=== PATIENT | female | born 1950 | race Caucasian/White ===

== ENCOUNTER 2017-05-27 12:56 | Outpatient (CLI) | payer MEDICARE | END 2017-05-27 12:57 | disposition home or self-care (01) | LOC: LAB.F 12:56 | PROVIDERS: ATTEND Internal Medicine | DX: E03.9 Hypothyroidism, unspecified (principal) | CPT/HCPCS: 36415; 84443 ==

== ENCOUNTER 2017-12-06 14:14 | Outpatient (CLI) | payer MEDICARE ==
[2017-12-06 18:22] LABS: THYROID STIMULATING HORMONE 4.63 uIU/mL (0.34-5.60)
[2017-12-06 18:23] LABS: FREE T4 (FREE THYROXINE) 0.52 ng/dL (0.58-1.64)
== END 2017-12-06 14:15 | disposition home or self-care (01) ==
LOC: LAB.F 14:14
PROVIDERS: ATTEND Nurse Practitioner Family
DX: E03.9 Hypothyroidism, unspecified (principal)
CPT/HCPCS: 36415; 84439; 84443

== ENCOUNTER 2017-12-14 10:01 | Outpatient (CLI) | payer MEDICARE ==
[2017-12-14 17:50] LABS: CHOL/HDL RATIO 2.8 (<4.4); CHOLESTEROL 175 mg/dL; HDL CHOLESTEROL 63 mg/dL; LDL CHOLESTEROL,CALCULATED 84 mg/dL; LDL/HDL RATIO 1.3 (<4.4); VLDL CHOLESTEROL 28 mg/dL
== END 2017-12-14 10:02 | disposition home or self-care (01) ==
LOC: LAB.F 10:01
PROVIDERS: ATTEND Nurse Practitioner Family
DX: E78.00 Pure hypercholesterolemia, unspecified (principal)
CPT/HCPCS: 36415; 80061; 83721

== ENCOUNTER 2018-06-29 14:34 | Outpatient (CLI) | payer MEDICARE ==
[2018-06-29 17:32] LABS: ALBUMIN 4.5 g/dL (3.2-5.5); ALBUMIN/GLOBULIN RATIO 1.5 (1.0-2.2); BILIRUBIN,TOTAL 0.5 mg/dL (0.2-1.0); CALCIUM 9.4 mg/dL (8.5-10.3); CREATININE 0.7 mg/dL (0.4-1.0); TOTAL PROTEIN 7.6 g/dL (6.7-8.2)
== END 2018-06-29 14:35 | disposition home or self-care (01) ==
LOC: LAB.F 14:34
PROVIDERS: ATTEND Specialist
DX: E03.9 Hypothyroidism, unspecified (principal); I10 Essential (primary) hypertension; E78.5 Hyperlipidemia, unspecified
CPT/HCPCS: 36415; 80053; 84443; 85651

== ENCOUNTER 2019-05-24 09:18 | Emergency (ER) | payer MEDICARE ==
--- NOTE | 2019-05-24 10:31 | XRAY Report ---
Reason: slip and fall. Knee pain and swelling Procedure Date: 05/24/2019 Accession Number: [id number] / [id number] Procedure: XR - Knee 3 View LT CPT Code: FULL RESULT: EXAM: LEFT KNEE RADIOGRAPHY 3 VIEWS EXAM DATE: 05/24/2019. CLINICAL HISTORY: Slip and fall. Knee pain and swelling. COMPARISON: None. TECHNIQUE: AP, lateral and sunrise views. FINDINGS: Bones: No fracture or other acute osseous abnormality. Small lateral posterior patellar osteophytes. Joints: Mild lateral patellar subluxation and narrowing of the lateral facet of the patellofemoral joint. No effusion. Soft Tissues: Normal. No soft tissue swelling. 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 Otherwise normal examination. RADIA
--- NOTE | 2019-05-24 11:45 | ED Physician Documentation ---
PD HPI LOWER EXT INJURY - Stated complaint Stated Complaint: LT KNEE INJURY - Chief complaint Chief Complaint: Trauma Ext - History obtained from History obtained from: Patient - History of Present Illness PD HPI LOW EXT INJURY LOCATION: Left, Knee Type of injury: Fall Where injury occurred: Home Timing - onset: Enter time (2100), Last night Timing - duration: Hours Timing - details: Abrupt onset, Still present Improved by: Rest, Immobilization Worsened by: Moving, Palpating Associated symptoms: Swelling. No: Weakness, Numbness Contributing factors: No: Anticoagulated Similar symptoms before: Has not had sx before Recently seen: Not recently seen - Additional information Additional information: 69-year-old female got her out of her hot tub last night went into her bathroom she slipped on the floor and landed on the right knee with her left leg extended. She has pain to the medial joint line and some feeling of instability when she is walking. She is having pain with any attempted ambulation. Review of Systems Constitutional: denies: Fever Respiratory: denies: Cough GI: denies: Vomiting PD PAST MEDICAL HISTORY - Past Medical History Past Medical History: No - Allergies Allergies/Adverse Reactions: Allergies Allergy/AdvReac Type Severity Reaction Status Date / Time No Known Drug Allergies Allergy Verified 05/24/19 09:30 - Social History Does the pt smoke?: No Smoking Status: Never smoker PD ED PE NORMAL - Vitals Vital signs reviewed: Yes (hypertensive ) - General General: Alert and oriented X 3, No acute distress, Well developed/nourished - HEENT HEENT: Atraumatic, PERRL, EOMI - Respiratory Respiratory: No respiratory distress - Derm Derm: Normal color, Warm and dry, No rash - Extremities Extremities: No deformity, No edema, Other (There is bruising to the medial joint line of the left knee. There is corresponding tenderness to the area. The medial joint line opens with valgus forces applied. The lateral collateral ligement and ACL appear intact to testing. distal n/v is intact. 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 Otherwise normal examination.), EMP read indepedently, See rad report PD MEDICAL DECISION MAKING - ED course Complexity details: reviewed results, re-evaluated patient, considered differential, d/w patient ED course: 69-year-old female with a slip and fall in her bathroom has sprained her left knee and she has a medial collateral ligament tear on examination. She is placed into a knee immobilizer x-rays are without evidence of fracture I have asked patient to follow-up with orthopedics. Departure - Departure Disposition: 01 Home, Self Care Clinical Impression: MCL sprain of left knee Qualifiers: Encounter type: initial encounter Qualified Code(s): S83.412A - Sprain of medial collateral ligament of left knee, initial encounter Condition: Stable Instructions: ED Sprain Knee Collateral Ligaments Follow-Up: Tirso Haas MD [Primary Care Provider] - [facility] [Provider Group]
[2019-05-24 12:04] VITALS: BP 155/63
== END 2019-05-24 12:03 | disposition home or self-care (01) ==
LOC: ED 09:18
DX: S83.412A Sprain of medial collateral ligament of left knee, initial encounter (principal); W01.0XXA Fall on same level from slipping, tripping and stumbling without subsequent striking against object, initial encounter; Y92.002 Bathroom of unspecified non-institutional (private) residence as the place of occurrence of the external cause
CPT/HCPCS: 99282; 99283

== ENCOUNTER 2019-06-03 10:20 | Outpatient (CLI) | payer MEDICARE ==
--- NOTE | 2019-06-04 09:17 | MRI Report ---
Reason: L KNEE PAIN Procedure Date: 06/03/2019 Accession Number: [id number] / [id number] Procedure: MRI - Knee LT W/O CPT Code: FULL RESULT: EXAM: LEFT KNEE MRI WITHOUT CONTRAST EXAM DATE: 06/03/2019 11:18 AM. CLINICAL HISTORY: L KNEE PAIN. COMPARISON: KNEE 3 VIEW LT 05/24/2019 9:48 AM. TECHNIQUE: Multiplanar, multisequence T1-weighted and fluid-sensitive sequences of the knee without contrast. Other: None. FINDINGS: Ligaments: The anterior cruciate, posterior cruciate, and lateral collateral ligaments are intact and unremarkable. The proximal fibers of the medial collateral ligament are amorphous, irregular, and increased in signal, extending to the femoral attachment. Findings are consistent with sequela of MCL sprain which is at least a high-grade partial tear and there is probably complete discontinuity of the ligament making complete tear likely. Patellofemoral compartment: Diffuse chondromalacia of the lateral retropatellar surface, portions of which are full-thickness. Diffuse chondromalacia of the femoral trochlea is most severe laterally where full thickness chondromalacia is present. Mild to moderate patellofemoral osteophyte formation indicates osteoarthritis. Patellofemoral alignment is anatomic. The distal quadriceps and patellar tendons are normal. The medial and lateral patellofemoral retinacula are normal. Medial compartment: The medial meniscus is intact. Mild partial thickness chondromalacia of the weightbearing surface of the medial femoral condyle. Medial tibial plateau cartilage is preserved. Tiny medial compartment osteophytes indicate very mild osteoarthritis. Lateral compartment: The lateral meniscus is intact. Mild partial thickness chondromalacia of the weightbearing surfaces of the lateral femoral condyle and lateral tibial plateau. Small marginal osteophytes indicate osteoarthritis. Soft tissues: No significant knee effusion. No popliteal cyst. No articular body. IMPRESSION: 1. High-grade and probably complete proximal medial collateral ligament tear. The remaining ligaments are intact. 2. Moderate patellofemoral chondromalacia, much of which is full-thickness, most evident laterally with mild to moderate osteoarthritis. 3. Mild medial compartment chondromalacia and very mild osteoarthritis. Intact medial meniscus. 4. Mild lateral compartment chondromalacia and osteoarthritis. Intact lateral meniscus. RADIA
== END 2019-06-03 10:21 | disposition home or self-care (01) ==
LOC: DI 10:20
PROVIDERS: ATTEND Physician Assistant Medical
DX: S83.412A Sprain of medial collateral ligament of left knee, initial encounter (principal); M94.262 Chondromalacia, left knee; M17.12 Unilateral primary osteoarthritis, left knee

== ENCOUNTER 2020-02-05 18:49 | Outpatient (CLI) | payer MEDICARE | END 2020-02-05 18:50 | disposition home or self-care (01) | LOC: COV 18:49 | PROVIDERS: ATTEND Family Medicine | DX: R50.9 Fever, unspecified (principal); M79.10 Myalgia, unspecified site; R53.83 Other fatigue; R19.7 Diarrhea, unspecified | CPT/HCPCS: 81599 ==

== ENCOUNTER 2020-02-14 10:42 | Emergency (ER) | payer MEDICARE ==
[2020-02-14 10:51] VITALS: BP 150/72
--- NOTE | 2020-02-14 11:34 | XRAY Report ---
Reason: Swelling Procedure Date: 02/14/2020 Accession Number: [id number] / [id number] Procedure: XR - Ankle 2 View LT CPT Code: Final Report FULL RESULT: EXAM: LEFT ANKLE RADIOGRAPHY EXAM DATE: 02/14/2020 11:18 AM. CLINICAL HISTORY: Swelling. COMPARISON: None. TECHNIQUE: 2 views. FINDINGS: Bones: There is a nondisplaced transverse fracture at the lateral malleolus. There is soft tissue at the lateral ankle. The ankle mortise appears within normal limits. No fracture of the talus or distal tibia identified. No subcutaneous radiopaque foreign bodies. IMPRESSION: Nondisplaced fracture of the lateral malleolus. RADIA
--- NOTE | 2020-02-14 11:35 | XRAY Report ---
Reason: Pain Procedure Date: 02/14/2020 Accession Number: [id number] / [id number] Procedure: XR - Knee 2 View RT CPT Code: Final Report FULL RESULT: EXAM: RIGHT KNEE RADIOGRAPHY EXAM DATE: 02/14/2020 11:18 AM. CLINICAL HISTORY: Pain. COMPARISON: None. TECHNIQUE: 2 views. FINDINGS: No fracture or subluxation detected. There is mild narrowing of the medial compartment of the knee. There is a trace suprapatellar joint effusion. IMPRESSION: No fracture detected. RADIA
--- NOTE | 2020-02-14 11:43 | ED Physician Documentation ---
PD HPI LOWER EXT INJURY - Stated complaint Stated Complaint: LT ANKLE INJ - Chief complaint Chief Complaint: Ext Problem - History obtained from History obtained from: Patient - History of Present Illness PD HPI LOW EXT INJURY LOCATION: Left, Ankle Type of injury: Fall Where injury occurred: Street Timing - onset: Today Timing - duration: Minutes Timing - details: Abrupt onset, Still present Improved by: Rest, Ice, Immobilization Worsened by: Moving, Palpating Associated symptoms: Swelling. No: Weakness, Numbness Contributing factors: No: Anticoagulated Similar symptoms before: Has not had sx before Recently seen: Not recently seen - Additional information Additional information: Previously well 69-year-old female has a 5-month-old puppy that got away from her and she was carrying it back to her car when she twisted her left ankle. She has a lot of pain in the left ankle laterally and she is not able to bear weight on this adequately. She does have some pain in her right knee where she landed and has significant deep abrasion. She reports that she was on her way to get x-rays of her knee on the right side when this incident occurred. She has been having some pain in this right knee for several weeks. She attributes this to being more active taking care of a puppy. Her left knee has healed up from the medial collateral ligament sprain over 1 year ago Review of Systems Constitutional: reports: Fever (resolved last week), Chills (resolved last week), Myalgias (resolved last week) Ears: denies: Ear pain Nose: denies: Congestion Throat: denies: Sore throat Respiratory: denies: Dyspnea, Cough GI: denies: Vomiting Skin: reports: Abrasion (s). denies: Rash Musculoskeletal: reports: Joint pain, Extremity swelling, Joint swelling, Pain with weight bearing Neurologic: denies: Generalized weakness, Focal weakness, Numbness PD PAST MEDICAL HISTORY - Past Medical History Past Medical History: Yes - Allergies Allergies/Adverse Reactions: Allergies Allergy/AdvReac Type Severity Reaction Status Date / Time No Known Drug Allergies Allergy Verified 05/24/19 09:30 - Social History Does the pt smoke?: No Smoking Status: Never smoker PD ED PE NORMAL - Vitals Vital signs reviewed: Yes (hypertensive ) - General General: Alert and oriented X 3, No acute distress, Well developed/nourished - HEENT HEENT: Atraumatic, PERRL, EOMI - Neck Neck: Supple, no meningeal sign - Respiratory Respiratory: No respiratory distress - Derm Derm: Normal color, Warm and dry, No rash - Extremities Extremities: Other (There is swelling and point tenderness over the lateral malleolus on the left ankle. There is no tenderness to the proximal fifth. Neurovascular components are intact. She is able to flex and extend the ankle but with pain. The left knee is unremarkable. The right knee shows deep abrasion anteriorly over the patella but without decreased range of motion and the ligaments to testing are stable. Distal neurovascular components are inta ct.) - Neuro Neuro: Alert and oriented X 3, medical associate 2-12 intact, No motor deficit, No sensory deficit, Normal speech Eye Opening: Spontaneous Motor: Obeys Commands Verbal: Oriented GCS Score: 15 - Psych Psych: Normal mood, Normal affect Results - Vitals Vitals: Vital Signs - 24 hr 02/14/20 10:49 Temperature 36.7 C Heart Rate 50 L Respiratory 16 Rate Blood Pressure 150/72 H O2 Saturation 99 Oxygen O2 Source Room air - Rads (name of study) ankle Radiology: Prelim report reviewed (Impression: Nondisplaced fracture of the lateral malleolus.), EMP read indepedently, See rad report Knee Radiology: Prelim report reviewed (Impression: No fracture detected.), EMP read indepedently, See rad report Procedures - Splint (location) left ankle Splint applied by: Tech Type of splint: Fiberglass, Posterior Other: Patient tolerated well, No complications, Neurovascular intact, Good alignment, Crutches provided PD MEDICAL DECISION MAKING - ED course Complexity details: reviewed results, re-evaluated patient, considered differential, d/w patient ED course: 69-year-old female with a ground-level fall twisting her ankle fracturing the left lateral malleolus without displacement and deep abrasion to the right anterior knee. She is placed into a posterior splint and onto crutches and I have asked her to follow-up with orthopedics in the coming week to be placed into a walking boot. Departure - Departure Disposition: 01 Home, Self Care Clinical Impression: Nondisplaced fracture of distal end of left fibula Condition: Stable Instructions: ED Fx Ankle Lateral Malleolus Follow-Up: Tirso Haas MD [Primary Care Provider] - [facility] [Provider Group]
== END 2020-02-14 12:20 | disposition home or self-care (01) ==
LOC: ED 10:42
DX: S82.65XA Nondisplaced fracture of lateral malleolus of left fibula, initial encounter for closed fracture (principal); S80.211A Abrasion, right knee, initial encounter; X50.1XXA Overexertion from prolonged static or awkward postures, initial encounter; Y93.01 Activity, walking, marching and hiking
CPT/HCPCS: 29505; 99284

== ENCOUNTER 2020-12-31 19:13 | Emergency (ER) | payer MEDICARE ==
--- NOTE | 2020-12-31 19:46 | ED Physician Documentation ---
PD HPI CHEST PAIN - Stated complaint Stated Complaint: DIZZY,FAINTING - Chief complaint Chief Complaint: Cardiac - History obtained from History obtained from: Patient - Additional information Additional information: Her thyroid medicine changed 3 days ago from a more natural form to something that starts with L. Around that time she started to get orthostatic presyncope. Generally if she stands up she feels like her brain is sloshing around. There is no chest pain with it. No shortness of breath. No pedal edema. No urinary complaints. Review of Systems Ten Systems: 10 systems reviewed and negative Constitutional: denies: Fever, Chills Cardiac: denies: Chest pain / pressure, Palpitations Respiratory: denies: Dyspnea, Cough PD PAST MEDICAL HISTORY - Allergies Allergies/Adverse Reactions: Allergies Allergy/AdvReac Type Severity Reaction Status Date / Time No Known Drug Allergies Allergy Verified 05/24/19 09:30 - Social History Does the pt smoke?: No Smoking Status: Never smoker PD ED PE NORMAL - Vitals Vital signs reviewed: Yes (And normal orthostatics) - General General: Alert and oriented X 3, No acute distress - HEENT HEENT: PERRL, EOMI - Neck Neck: Supple, no meningeal sign, No bony TTP - Cardiac Cardiac: RRR, No murmur - Respiratory Respiratory: No respiratory distress, Clear bilaterally - Abdomen Abdomen: Non tender - Back Back: No CVA TTP, No spinal TTP - Derm Derm: Normal color, Warm and dry - Extremities Extremities: No edema, No calf tenderness / cord - Neuro Neuro: Alert and oriented X 3, No motor deficit, No sensory deficit, Normal speech Results - Vitals Vitals: Vital Signs - 24 hr 12/31/20 12/31/20 19:18 19:45 Temperature 36.8 C Heart Rate 50 L Heart Rate [ 51 L Sitting] Heart Rate [ 50 L Standing] Heart Rate [ 54 L Supine] Respiratory 16 Rate Blood Pressure 111/65 Blood Pressure 125/83 H [Sitting] Blood Pressure 127/68 [Standing] Blood Pressure 127/60 [Supine] O2 Saturation 98 Oxygen O2 Source Room air - EKG (time done) 1927 Rate: Rate (enter#) (47) Rhythm: Sinus bradycardia [place]: Normal Intervals: Normal RI QRS: Normal Ischemia: Non specific changes. No: ST elevation c/w ischemia, ST depression - Labs Labs: Laboratory Tests 12/31/20 12/31/20 12/31/20 19:47 19:47 19:47 WBC 7.3 RBC 4.17 L Hgb 12.7 Hct 38.2 MCV 91.6 MCH 30.5 MCHC 33.2 RDW 13.2 Plt Count 263 MPV 9.4 Neut # (Auto) 4.7 Lymph # (Auto) 1.9 [place] # (Auto) 0.6 Eos # (Auto) 0.1 Baso # (Auto) 0.1 Absolute Nucleated RBC 0.00 Nucleated RBC % 0.0 Sodium 137 Potassium 3.3 L Chloride 101 Carbon Dioxide 26 Anion Gap 10.0 BUN 27 H Creatinine 1.0 Estimated GFR (MDRD) 55 L Glucose 104 H Calcium 9.4 Magnesium 2.0 Total Bilirubin 0.5 AST 19 ALT 22 Alkaline Phosphatase 50 Total Protein 7.4 Albumin 4.4 Globulin 3.0 Albumin/Globulin Ratio 1.5 TSH 6.77 H PD MEDICAL DECISION MAKING - ED course ED course: 70-year-old woman with 3 days of presyncopal episodes. She was noted to be modestly bradycardic here generally in the high 40s. She was not orthostatic but that may be because of the beta-blockade, she is currently on metoprolol 50 mg twice a day. She was advised to half this pending follow-up. Of note I offered IV fluids for the elevated BUN which she declined. Departure - Departure Disposition: 01 Home, Self Care Clinical Impression: Dehydration, Bradycardia Condition: Good Record reviewed to determine appropriate education?: Yes Instructions: ED Dehydration Comments: Skip your metoprolol tonight. Tomorrow start it at half dose, 25 mg twice a day. Follow-up with your doctor within the week for recheck. Return if worse.
[2020-12-31 19:52] LABS: BASOPHILS # (AUTO) 0.1 10^3/uL (0.0-0.1); BASOPHILS % (AUTO) 0.7 %; EOSINOPHILS # (AUTO) 0.1 10^3/uL (0.0-0.7); HCT - HEMATOCRIT 38.2 % (37.0-47.0); HGB - HEMOGLOBIN 12.7 g/dL (12.0-16.0); LYMPHOCYTES # (AUTO) 1.9 10^3/uL (1.5-3.5); LYMPHOCYTES % (AUTO) 25.5 %; MEAN CORPUSCULAR HEMOGLOBIN 30.5 pg (27.0-31.0); MEAN CORPUSCULAR HGB CONC 33.2 g/dL (32.0-36.0); MEAN CORPUSCULAR VOLUME 91.6 fL (81.0-99.0); MEAN PLATELET VOLUME 9.4 fL (7.9-10.8); MONOCYTES # (AUTO) 0.6 10^3/uL (0.0-1.0); MONOCYTES % (AUTO) 8.8 %; NEUTROPHILS # (AUTO) 4.7 10^3/uL (1.5-6.6); NEUTROPHILS % (AUTO) 63.7 %; PLT - PLATELET COUNT 263 10^3/uL (130-450); RED BLOOD COUNT 4.17 10^6/uL (4.20-5.40); RED CELL DISTRIBUTION WIDTH 13.2 % (12.0-15.0); WHITE BLOOD COUNT 7.3 x10^3/uL (4.8-10.8)
[2020-12-31 20:06] LABS: ALBUMIN 4.4 g/dL (3.2-5.5); ALBUMIN/GLOBULIN RATIO 1.5 (1.0-2.2); BILIRUBIN,TOTAL 0.5 mg/dL (0.2-1.0); CALCIUM 9.4 mg/dL (8.5-10.3); POTASSIUM 3.3 mmol/L (3.5-5.0); TOTAL PROTEIN 7.4 g/dL (6.7-8.2)
[2020-12-31 20:52] VITALS: BP 120/67
--- OUTSIDE RECORDS SUMMARY | 2021-01-07 23:08 | EXTERNAL MEDICAL SUMMARY RPT | Continuity of Care Document ---
:1950 Demographics Phone Unavailable Preferred Language Unknown Marital Status Unknown Cheondoism Affiliation Unknown Race Unknown Ethnic Group Unknown Author Organization [facility] [place] Address [address] [place] [address] Phone Social History date description facility [id number]
== END 2020-12-31 20:52 | disposition home or self-care (01) ==
LOC: ED 19:13
DX: E86.0 Dehydration (principal); R00.1 Bradycardia, unspecified; R55 Syncope and collapse
CPT/HCPCS: 36415; 80053; 83735; 84443; 85025; 93005; 99283; 99284

== ENCOUNTER 2021-09-15 08:00 | Outpatient (CLI) | payer MEDICARE ==
--- NOTE | 2021-09-15 17:22 | XRAY Report ---
PROCEDURE: Ankle 3 View RT INDICATIONS: RIGHT ANKLE PAIN TECHNIQUE: 3 views of the ankle were acquired. COMPARISON: None FINDINGS: Bones: No fractures or dislocations. Ankle mortise is normally aligned. No suspicious bony lesions . Soft tissues: No tibiotalar joint effusion. Achilles tendon appears normal. IMPRESSION: No evidence acute bony abnormality of the right ankle. If clinical suspicion and/or symptoms persist, further assessment with repeat plain films or advanced imaging (e.g., CT, MRI, or bone scan) may be helpful for further assessment. Reviewed by: George Flynn MD on 09/15/2021 5:21 PM PST Approved by: George Flynn MD on 09/15/2021 5:21 PM PST Station ID: [id number]
== END 2021-09-15 23:59 | disposition home or self-care (01) ==
LOC: DI.S 08:00
PROVIDERS: ATTEND Physician Assistant Medical
DX: M25.571 Pain in right ankle and joints of right foot (principal)

== ENCOUNTER 2022-01-30 11:13 | Emergency (ER) | payer MEDICARE ==
[2022-01-30 12:06] LABS: BASOPHILS % (AUTO) 0.8 %; EOSINOPHILS # (AUTO) 0.1 10^3/uL (0.0-0.7); HCT - HEMATOCRIT 37.3 % (37.0-47.0); HGB - HEMOGLOBIN 12.2 g/dL (12.0-16.0); LYMPHOCYTES # (AUTO) 1.4 10^3/uL (1.5-3.5); LYMPHOCYTES % (AUTO) 35.6 %; MEAN CORPUSCULAR HGB CONC 32.7 g/dL (32.0-36.0); MEAN CORPUSCULAR VOLUME 91.9 fL (81.0-99.0); MEAN PLATELET VOLUME 9.5 fL (7.9-10.8); MONOCYTES # (AUTO) 0.4 10^3/uL (0.0-1.0); MONOCYTES % (AUTO) 8.8 %; NEUTROPHILS # (AUTO) 2.1 10^3/uL (1.5-6.6); NEUTROPHILS % (AUTO) 52.5 %; PLT - PLATELET COUNT 244 10^3/uL (130-450); RED BLOOD COUNT 4.06 10^6/uL (4.20-5.40); RED CELL DISTRIBUTION WIDTH 13.3 % (12.0-15.0)
[2022-01-30 12:21] LABS: ALBUMIN 3.9 g/dL (3.2-5.5); ALBUMIN/GLOBULIN RATIO 1.4 (1.0-2.2); BILIRUBIN,TOTAL 0.6 mg/dL (0.2-1.0); CALCIUM 8.9 mg/dL (8.5-10.3); CREATININE 0.7 mg/dL (0.4-1.0); POTASSIUM 3.5 mmol/L (3.5-5.0); TOTAL PROTEIN 6.7 g/dL (6.7-8.2)
[2022-01-30 12:45] LABS: BILIRUBIN,URINE NEGATIVE (NEGATIVE); GLUCOSE, URINE (UA) NEGATIVE (NEGATIVE); KETONES,URINE (UA) NEGATIVE (NEGATIVE); LEUKOCYTE ESTERASE, URINE NEGATIVE (NEGATIVE); NITRITE,URINE NEGATIVE (NEGATIVE); OCCULT BLOOD,URINE TRACE-INTA (NEGATIVE); PROTEIN,URINE NEGATIVE (NEGATIVE); UROBILINOGEN,URINE 0.2 (NORMAL) E.U./dL (NORMAL)
[2022-01-30 12:46] LABS: CLARITY,URINE CLEAR (CLEAR)
--- NOTE | 2022-01-30 13:04 | ED Physician Documentation ---
History of Present Illness - Stated complaint Stated Complaint: BP HIGH - Chief complaint Chief Complaint: Cardiac - History obtained from History obtained from: Patient, Family - History of Present Illness Timing: How many days ago (2) - Additonal information Additional information: 71-year-old female with a history of hypertension has had a recent change in her medication and she has been changed from hydrochlorothiazide to amlodipine. In addition she ended up having urinary tract infection and was treated with Macrobid for that. Over the past 3 days she has noted that her blood pressure has been elevated and she is coming today for evaluation for elevated blood pressure. She does not have any other specific symptoms. She denies any headache confusion weakness numbness nausea. Review of Systems Constitutional: denies: Fever Eyes: denies: Decreased vision Ears: denies: Ear pain Nose: denies: Congestion Throat: denies: Sore throat Cardiac: denies: Chest pain / pressure, Palpitations Respiratory: denies: Dyspnea, Cough GI: denies: Abdominal Pain, Nausea, Vomiting, Constipation, Diarrhea : denies: Dysuria, Frequency Skin: denies: Rash Musculoskeletal: denies: Neck pain, Back pain Neurologic: denies: Generalized weakness, Focal weakness, Numbness, Confused, Altered mental status, Headache, Head injury, LOC PD PAST MEDICAL HISTORY - Past Medical History Past Medical History: Yes Cardiovascular: Hypertension, High cholesterol Endocrine/Autoimmune: HyPOthyroidism - Present Medications Home Medications: Ambulatory Orders Medication Instructions Recorded Confirmed Amlodipine Besylate [Norvasc] 2.5 mg PO DAILY 01/30/22 01/30/22 Atorvastatin Calcium 40 mg PO DAILY 01/30/22 01/30/22 Levothyroxine [Synthroid] 25 mcg PO DAILY 01/30/22 01/30/22 Losartan [Cozaar] 100 mg PO DAILY 01/30/22 01/30/22 Melatonin 10 mg PO HS PRN 01/30/22 01/30/22 - Allergies Allergies/Adverse Reactions: Allergies Allergy/AdvReac Type Severity Reaction Status Date / Time No Known Drug Allergies Allergy Verified 01/30/22 11:20 - Social History Does the pt smoke?: No Smoking Status: Never smoker Does the pt drink ETOH?: Yes Does the pt have substance abuse?: No - Immunizations Immunizations are current?: Yes - POLST Patient has POLST: No PD ED PE NORMAL - Vitals Vital signs reviewed: Yes (hypertensive ) - General General: Alert and oriented X 3, No acute distress, Well developed/nourished - HEENT HEENT: Atraumatic, PERRL, EOMI, Other (There is some mid facial swelling that is mild. ) - Neck Neck: Supple, no meningeal sign, No bony TTP - Cardiac Cardiac: RRR, No murmur - Respiratory Respiratory: No respiratory distress, Clear bilaterally - Abdomen Abdomen: Normal bowel sounds, Soft, Non tender, Non distended, No organomegaly - Back Back: No CVA TTP, No spinal TTP - Derm Derm: Normal color, Warm and dry, No rash - Extremities Extremities: No deformity, No edema - Neuro Neuro: Alert and oriented X 3, exhibitor sales 2-12 intact, No motor deficit, No sensory deficit, Normal speech Eye Opening: Spontaneous Motor: Obeys Commands Verbal: Oriented GCS Score: 15 - Psych Psych: Normal mood, Normal affect Results - Vitals Vitals: Vital Signs - 24 hr 01/30/22 01/30/22 01/30/22 11:15 11:38 13:15 Temperature 36.4 C L 36.7 C Heart Rate 61 59 L 51 L Respiratory 16 16 18 Rate Blood Pressure 182/66 H 156/73 H 175/83 H O2 Saturation 99 98 97 Oxygen O2 Source Room air - Labs Labs: Laboratory Tests 01/30/22 01/30/22 01/30/22 12:01 12:01 12:01 WBC 4.0 L RBC 4.06 L Hgb 12.2 Hct 37.3 MCV 91.9 MCH 30.0 MCHC 32.7 RDW 13.3 Plt Count 244 MPV 9.5 Neut # (Auto) 2.1 Lymph # (Auto) 1.4 L [place] # (Auto) 0.4 Eos # (Auto) 0.1 Baso # (Auto) 0.0 Absolute Nucleated RBC 0.00 Nucleated RBC % 0.0 Sodium 140 Potassium 3.5 Chloride 104 Carbon Dioxide 27 Anion Gap 9.0 BUN 20 Creatinine 0.7 Estimated GFR (MDRD) 82 L Glucose 130 H Lactic Acid 1.4 Calcium 8.9 Total Bilirubin 0.6 AST 18 ALT 18 Alkaline Phosphatase 41 L Total Protein 6.7 Albumin 3.9 Globulin 2.8 Albumin/Globulin Ratio 1.4 Lipase 44 TSH Urine Color Urine Clarity Urine pH Ur Specific [place] Urine Protein Urine Glucose (UA) Urine Ketones Urine Occult Blood Urine Nitrite Urine Bilirubin Urine Urobilinogen Ur Leukocyte Esterase Ur Microscopic Review Urine Culture Comments 01/30/22 01/30/22 12:01 12:25 WBC RBC Hgb Hct MCV MCH MCHC RDW Plt Count MPV Neut # (Auto) Lymph # (Auto) [place] # (Auto) Eos # (Auto) Baso # (Auto) Absolute Nucleated RBC Nucleated RBC % Sodium Potassium Chloride Carbon Dioxide Anion Gap BUN Creatinine Estimated GFR (MDRD) Glucose Lactic Acid Calcium Total Bilirubin AST ALT Alkaline Phosphatase Total Protein Albumin Globulin Albumin/Globulin Ratio Lipase TSH 5.43 Urine Color YELLOW Urine Clarity CLEAR Urine pH 6.0 Ur Specific [place] 1.025 Urine Protein NEGATIVE Urine Glucose (UA) NEGATIVE Urine Ketones NEGATIVE Urine Occult Blood TRACE-INTA Urine Nitrite NEGATIVE Urine Bilirubin NEGATIVE Urine Urobilinogen 0.2 (NORMAL) Ur Leukocyte Esterase NEGATIVE Ur Microscopic Review NOT INDICATED Urine Culture Comments NOT INDICATED Procedures - IVC sono (time) 1130 Bedside IVC sono: IVC measures (cm) (1.51), IVC collapsed c insp (cm) (0.75), Euvolemia PD MEDICAL DECISION MAKING - ED course Complexity details: reviewed old records, reviewed results, re-evaluated patient, considered differential, d/w patient, d/w family ED course: 71 y/o female with concerns about her blood pressure after a medication change. She is without symptoms here, she is euvolemic, she has normal blood counts and electrolytes. I have referred her back to her primary. Departure - Departure Disposition: 01 Home, Self Care Clinical Impression: Hypertension Qualifiers: Hypertension type: unspecified Qualified Code(s): I10 - Essential (primary) hypertension Condition: Stable Instructions: ED HTN Established Follow-Up: Wale Michelle MD [Physician No Access] - Comments: Major today your blood pressure was moderately elevated and your biochemical profile from the blood work we looked at and your blood counts all look normal. Follow-up with Dr. Michelle about the medication adjustments that have been made and have your blood pressure rechecked in about a week. Discharge Date/Time: 01/30/22 13:17
[2022-01-30 13:17] VITALS: BP 175/83
== END 2022-01-30 13:17 | disposition home or self-care (01) ==
LOC: ED 11:13
DX: I10 Essential (primary) hypertension (principal)
CPT/HCPCS: 36415; 80053; 81001; 81003; 83605; 83690; 84443; 85025; 87086; 99282; 99283